=== PATIENT | female | born 1970 | race Caucasian/White ===

== ENCOUNTER 2017-02-21 17:20 | Emergency (ER) | payer BC, OTHER ==
--- NOTE | 2017-02-21 17:21 | ED Physician Documentation ---
General Adult - HISTORIAN Historian: patient, paramedics - HPI Stated Complaint: possible seizure Chief Complaint: General Adult Onset: minutes Timing: better Severity: moderate Further Comments: yes (Pt is a 46 yo female with change in mental status that began at 5:45 pm today. Family called pt's sx a seizure and said that she had stopped breathing briefly. When EMS arrived, pt appeared confused. Pt is talking about and asking for family members as if they are alive. Pt talks about dancing last night, inappropriately. Pt has had at least 5 similar episodes in the past. After the last one pt was tx'd at [facility] and had surgery to relieve a pinched nerve in her neck, after which these episodes stopped until today. says that pt has significant thyroid disease. Also receives infusions at [facility] periodically, apparently for some calcium disorder. Pt also has DM and PATY, using CPAP.) - ROS CONST: other (pt unable to give ROS) NEURO/PSYCH: other (confusion) - PAST HX Past History: other (PATY on CPAP at night, HTN, chronic back pain, anxiety, thyroid d/o, ? calcuim disorder.) Surgeries/Procedures: other (surgery to relieve pinched nerve in neck, 2 yrs ago.) Allergies/Adverse Reactions: Allergies Allergy/AdvReac Type Severity Reaction Status Date / Time Penicillins Allergy Verified 02/21/17 17:46 Home Medications: Ambulatory Orders Medication Instructions Recorded DULoxetine HCL [Cymbalta] 30 mg PO D 09/30/15 Levothyroxine Sodium [Synthroid] 0.05 mg PO D 09/30/15 Lisinopril/Hydrochlorothiazide 2 tab PO D 09/30/15 [Zestoretic 20-12.5 mg Tablet] Lovastatin 40 mg PO PM 09/30/15 Omeprazole [Prilosec] 40 mg PO BID 09/30/15 SUMAtriptan SUCCINATE [Imitrex] 50 mg SQ PRN PRN 09/30/15 Sitagliptin Phosphate [Januvia] 100 mg PO D 09/30/15 Topiramate [Topamax] 25 mg PO PM 09/30/15 Trazodone HCl 50 mg PO PM 09/30/15 amLODIPine BESYLATE [Norvasc] 5 mg PO PM 09/30/15 Baclofen 10 mg PO BID PRN 05/17/16 - SOCIAL HX Smoking History: non-smoker (pt recently quit smoking) - FAMILY HX Family History: No - VITAL SIGNS Vital Signs: Vital Signs Temp Pulse Resp BP Pulse Ox 126/73 05/17/16 10:34 - REVIEWED ASSESSMENTS Nursing Assessment Reviewed: Yes Vitals Reviewed: Yes Progress - Progress Progress: CT head - no acute process Tranfer to [facility], Dr. Baez. - EKG/XRAY/CT CT: CT head w/o contrast: No acute intracranial process. General Adult Physical Exam - PHYSICAL EXAM GENERAL APPEARANCE: moderate distress EENT: eye inspection normal, ENT inspection normal, pharynx normal NECK: normal inspection, supple RESPIRATORY: no resp distress, chest non-tender, breath sounds normal CVS: reg rate & rhythm, heart sounds normal ABDOMEN: soft (obese), no organomegaly, normal bowel sounds BACK: normal inspection, no CVA tenderness SKIN: warm/dry EXTREMITIES: non-tender, normal range of motion, no edema (mild) NEURO: sensation nml, other (subtle L facial droop; ? 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+; not oriented) Discharge Clincal Impression: Mental status change Qualifiers: Altered mental status type: unspecified Qualified Code(s): R41.82 - Altered mental status, unspecified Home Medications: Ambulatory Orders DULoxetine HCL [Cymbalta] 30 mg PO D 09/30/15 Levothyroxine Sodium [Synthroid] 0.05 mg PO D 09/30/15 Lisinopril/Hydrochlorothiazide [Zestoretic 20-12.5 mg Tablet] 2 tab PO D Lovastatin 40 mg PO PM 09/30/15 Omeprazole [Prilosec] 40 mg PO BID 09/30/15 SUMAtriptan SUCCINATE [Imitrex] 50 mg SQ PRN PRN 09/30/15 Sitagliptin Phosphate [Januvia] 100 mg PO D 09/30/15 Topiramate [Topamax] 25 mg PO PM 09/30/15 Trazodone HCl 50 mg PO PM 09/30/15 amLODIPine BESYLATE [Norvasc] 5 mg PO PM 09/30/15 Baclofen 10 mg PO BID PRN 05/17/16 Condition: Stable Disposition: 02 XFER [id number]-TRM HOSP Decision to Admit: NO Decision Time: 18:35
[2017-02-21 17:45] LABS: BASOPHILS % 0.5 (0.0-1.5); EOSINOPHILS % 1.9 % (0.0-6.8); MEAN CORPUSCULAR VOLUME 87.6 fl (80.0-100.0); MONOCYTES % 4.3 % (0.0-11.0); NEUTROPHILS # 3.5 # k/uL (1.4-7.7)
--- NOTE | 2017-02-21 17:58 | Diagnostic Imaging Report ---
[facility] [id number] [facility] [address] [place], [place]. [address] Report Submission Date: Feb 21, 2017 5:54:23 PM CDT Patient Study Name: CLAUDIA DELGADO Date: Feb 21, 2017 5:37:19 PM CDT Modality Type: CT\SR Gender: F Description: CT BRAIN W/O CONTRAST : 66 Institution: [facility] Physician: ROSA ARELLANO - ER CT brain noncontrast Date of study: 21 February 2017 CLINICAL HISTORY: POSSIBLE SEIZURE, LEFT SIDED FACIAL WEAKNESS. PT EXTREMELY CONFUSED (Hx) / SEIZURE (DICOM Hx) TECHNIQUE: 5 mm contiguous axial images of the brain, noncontrast. FINDINGS: There is no evidence of intracranial mass effect, hemorrhage, or acute hydrocephalus. The lateral ventricles are symmetrical and the 4th ventricle is midline without shift. No acute brain parenchymal changes or extra-axial fluid collections are identified. The posterior fossa contents are within normal limits. The calvarium is intact. The visualized sinuses and mastoid air cells are clear. This results called to Dr Arellano at the ER at 1753 IMPRESSION: No acute intracranial process. Electronically signed on Feb 21, 2017 5:54:23 PM CDT by: Tao OLIVAS
[2017-02-21 17:59] LABS: eGFR (African) > 60; eGFR (Non-African) > 60
[2017-02-21 18:41] VITALS: BP 114/69
[2017-02-22 05:35] LABS: AMPHETAMINE NEGATIVE ng/mL (<1000); BARBITURATES NEGATIVE ng/mL (<300); CANNABINOIDS NEGATIVE ng/mL (<50); COCAINE NEGATIVE ng/mL (<150); METHAMPHETAMINE NEGATIVE ng/mL (<1000); METHYLENEDIOXYMETHAMPHETAMINE NEGATIVE ng/mL (<500)
[2017-02-22 05:38] LABS: APPEARANCE,URINE CLEAR (CLEAR); COLOR,URINE YELLOW (YELLOW); OCCULT BLOOD,URINE NEGATIVE (NEGATIVE); PH URINE 5.5 (5.0 - 8.0); UROBILINOGEN URINE 0.2 Eu (0.2-1.0)
== END 2017-02-21 18:40 | disposition short-term general hospital (02) ==
LOC: ED 17:20
DX: R41.82 Altered mental status, unspecified (principal)
CPT/HCPCS: 36415; 51701; 70450; 80053; 80377; 81002; 84703; 85025; 99283; 99284; G0481

== ENCOUNTER 2017-05-13 23:12 | Emergency (ER) | payer SELFPAY ==
--- NOTE | 2017-05-14 00:22 | ED Physician Documentation ---
General Adult - HISTORIAN Historian: patient - HPI Stated Complaint: Pain under left breast Chief Complaint: General Adult Additional Information: Pain under left breast for 2 days. No pain at rest, but if she moves arms to fold clothes or package pick up laundry basket, the pain is presnet. Living in motel room recently. - ROS CONST: no problems CVS/RESP: denies: cough - PAST HX Past History: other (chronic back pain) Allergies/Adverse Reactions: Allergies Allergy/AdvReac Type Severity Reaction Status Date / Time Penicillins Allergy Intermediate Hives Verified 05/14/17 00:07 Home Medications: Ambulatory Orders Medication Instructions Recorded DULoxetine HCL [Cymbalta] 30 mg PO D 09/30/15 Levothyroxine Sodium [Synthroid] 0.05 mg PO D 09/30/15 Lovastatin 40 mg PO PM 09/30/15 Omeprazole [Prilosec] 40 mg PO BID 09/30/15 SUMAtriptan SUCCINATE [Imitrex] 50 mg SQ PRN PRN 09/30/15 Topiramate [Topamax] 25 mg PO PM 09/30/15 Trazodone HCl 50 mg PO PM 09/30/15 amLODIPine BESYLATE [Norvasc] 5 mg PO PM 09/30/15 Baclofen 10 mg PO BID PRN 05/17/16 Glimepiride [Amaryl] 2 mg PO QDAY 05/14/17 - SOCIAL HX Smoking History: non-smoker - FAMILY HX Family History: No - VITAL SIGNS Vital Signs: Vital Signs Temp Pulse Resp BP Pulse Ox 114/69 02/21/17 18:31 - REVIEWED ASSESSMENTS Nursing Assessment Reviewed: Yes Vitals Reviewed: Yes General Adult Physical Exam - PHYSICAL EXAM GENERAL APPEARANCE: obese EENT: eye inspection normal, ENT inspection normal, LICHA NECK: normal inspection, supple RESPIRATORY: no resp distress, breath sounds normal, other (Palpation distal rib edge left anterior thorax reproduces her pain. ) CVS: reg rate & rhythm, heart sounds normal, no murmur ABDOMEN: soft, normal bowel sounds, non-tender RECTAL: deferred BACK: normal inspection SKIN: warm/dry, normal color EXTREMITIES: normal range of motion (gait), no evidence of injury NEURO: CN's nml as tested, motor nml, sensation nml, cognition normal Discharge Clincal Impression: Costochondritis Referrals: Mack Wang [Primary Care Provider] - 2 Days Home Medications: Ambulatory Orders DULoxetine HCL [Cymbalta] 30 mg PO D 09/30/15 Levothyroxine Sodium [Synthroid] 0.05 mg PO D 09/30/15 Lovastatin 40 mg PO PM 09/30/15 Omeprazole [Prilosec] 40 mg PO BID 09/30/15 SUMAtriptan SUCCINATE [Imitrex] 50 mg SQ PRN PRN 09/30/15 Topiramate [Topamax] 25 mg PO PM 09/30/15 Trazodone HCl 50 mg PO PM 09/30/15 amLODIPine BESYLATE [Norvasc] 5 mg PO PM 09/30/15 Baclofen 10 mg PO BID PRN 05/17/16 Glimepiride [Amaryl] 2 mg PO QDAY 05/14/17 Condition: Good Disposition: 01 HOME, SELF-CARE Decision to Admit: NO Decision Time: 00:18
[2017-05-14 00:45] VITALS: BP 119/77
== END 2017-05-14 00:21 | disposition home or self-care (01) ==
LOC: ED 23:12
DX: M94.0 Chondrocostal junction syndrome [Tietze] (principal)
CPT/HCPCS: 99283

== ENCOUNTER 2017-06-06 16:24 | Outpatient (CLI) | payer OTHER | END 2017-06-06 16:25 | LOC: LAB 16:24 | PROVIDERS: ATTEND Family Medicine | DX: G89.29 Other chronic pain (principal) | CPT/HCPCS: 36415; 82728 ==

== ENCOUNTER 2017-09-25 18:41 | Emergency (ER) | payer OTHER ==
[2017-09-25] MEDS ORDERED: 0.9 % SODIUM CHLORIDE 1,000 ML IV SCH (19:00)
[2017-09-25] MEDS ORDERED: 0.9 % SODIUM CHLORIDE 1,000 ML IV ONE (19:09)
[2017-09-25 19:11] LABS: BASOPHILS % 0.7 (0.0-1.5); EOSINOPHILS % 2.9 % (0.0-6.8); MEAN CORPUSCULAR HEMOGLOBIN 28.5 pg (28.0-34.0); MEAN CORPUSCULAR VOLUME 87.5 fl (80.0-100.0); MONOCYTES % 4.6 % (0.0-11.0); NEUTROPHILS # 3.2 # k/uL (1.4-7.7)
--- NOTE | 2017-09-25 19:17 | ED Physician Documentation ---
Neuro Symptoms - HISTORIAN Historian: patient, spouse - [facility] Chief Complaint: Neurological Deficits Additional Information: historian. she doesn't feel right. 5-6 similar episodes in past. has been transferred to [place] from here, also transferred to [place] from [place]. Had neck surgery 2 years ago, and has had 5-6 episodes since then. has had full workups done, but "they can't find anything." her complaint today is left arm weakness, left facial droop, tongue deviates to the right. she is somewhat confused and complains of a global headache. she was seen by Dr Noonan and the [facility] and handed off to me with CVA protocol orders placed. Onset: minutes Timing: sudden onset, still present Last known Well Date: 09/25/17 Last Known Well Time: 19:17 Last known Well Code/Unknown Code: Unknown Severity: mild Context: denies: insect, tick bite, falling injury, head injury Further Comments: no - CHARACTERS OF DEFICIT New Weakness: LUE Altered Sensation: LUE Vision Problems: No Impaired Speech/ Swallowing: No Decreased Ability: cannot stand Cognition is Usually: alert but confused Gait is Usually: walks w/o assistance Associated Symptoms: headache - ROS MENTAL STATUS: denies: problems with vision, sore throat, trouble swallowing CVS/Resp Upper Extremity Problem: denies: chest pain, shortness of breath GI/ DYSPNEA: none MS/SKIN/LYMPH: none Neuro/Psych: headache - PAST HX Past History: other (5-6 similar episodes with no known diagnosis.) Other History: hyperlipidemia, hypertension, other (Gerd, psych) Surgeries/Procedures: none Allergies/Adverse Reactions: Allergies Allergy/AdvReac Type Severity Reaction Status Date / Time Penicillins Allergy Intermediate Hives Verified 09/25/17 19:25 Home Medications: Ambulatory Orders Medication Instructions Recorded Levothyroxine Sodium [Synthroid] 0.05 mg PO D 09/30/15 Lovastatin 40 mg PO PM 09/30/15 Omeprazole [Prilosec] 40 mg PO BID 09/30/15 SUMAtriptan SUCCINATE [Imitrex] 50 mg SQ PRN PRN 09/30/15 Topiramate [Topamax] 25 mg PO PM 09/30/15 Trazodone HCl 50 mg PO PM 09/30/15 amLODIPine BESYLATE [Norvasc] 5 mg PO PM 09/30/15 Calcium Citrate/Vitamin D3 500 mg PO BID 09/25/17 [Calcium Citrate +Vit D3 Tablet] Cholecalciferol (Vitamin D3) 6,000 unit PO DAILY 09/25/17 [Vitamin D3] Docusate Sodium [Colace] 100 mg PO BID 09/25/17 Hydrochlorothiazide 25 mg PO DAILY 09/25/17 Hydrocodone/Acetaminophen 1 each PO PRN PRN 09/25/17 [Hydrocodon-Acetaminophn 10-325] Linagliptin [Tradjenta] 5 mg PO DAILY 09/25/17 Nystatin 500,000 Unit/5 ml Udc 5 ml PO DAILY 09/25/17 [Nilstat] Vitamin E (Dl,Tocopheryl Acet) 800 mg PO DAILY 09/25/17 [E-200] - FAMILY HX Family History: no significant history - SOCIAL HX Smoking History: non-smoker Alcohol Use: none Drug Use: none - VITAL SIGNS Vital Signs: Vital Signs Temp Pulse Resp BP Pulse Ox 78 18 154/77 98 09/25/17 18:45 09/25/17 18:45 09/25/17 18:45 09/25/17 19:30 - REVIEWED ASSESSMENTS Nursing Assessment Reviewed: Yes Vitals Reviewed: Yes Progress - Results/Orders Results/Orders: CT normal labs unremarkable. - Progress Progress: spoke with Dr Carlos from neurology at [place]. He read her previous chart. He said if I think it is something new, that we could tf her, but otherwise he didn't see the utility in repeatig all the same tests. He said he was surprised she didn't have a neurology followup after discharge. He recommended following up with resident clinic for quicker service. I'll discuss with . discussed with and patient they agree with plan. ED Results Lab/Radiology - Lab Results Lab Results: Lab Results 09/25/17 09/25/17 09/25/17 19:06 19:06 19:06 WBC 6.30 K/ul K/ul (4.00-12.00) RBC 4.87 M/ul M/ul (3.90-5.20) Hgb 13.9 g/dL g/dL (12.0-16.0) Hct 42.6 % % (34.5-46.5) MCV 87.5 fl fl (80.0-100.0) MCH 28.5 pg pg (28.0-34.0) MCHC 32.6 g/dL g/dL (30.0-36.0) RDW 14.2 % % (11.3-14.3) Plt Count 196 K/mm3 K/mm3 (130-400) Neut % (Auto) 49.7 % % (39.0-79.0) Lymph % (Auto) 41.1 % % (16.0-50.0) [place] % (Auto) 4.6 % % (0.0-11.0) Eos % (Auto) 2.9 % % (0.0-6.8) Baso % (Auto) 0.7 (0.0-1.5) Neut # (Auto) 3.2 # k/uL # k/uL (1.4-7.7) Lymph # (Auto) 2.6 # k/uL # k/uL (0.6-4.0) [place] # (Auto) 0.3 # k/uL # k/uL (0.0-0.9) Eos # (Auto) 0.2 # k/uL # k/uL (0.0-0.6) Baso # (Auto) 0.0 # k/uL # k/uL (0.0-0.5) Reactive Lymphs % 1.0 % % (0.0-5.0) Reactive Lymphs # 0.1 # k/uL # k/uL (0.0-0.8) PT 9.9 Seconds Seconds (9.4-11.6) INR 0.94 (0.9-1.2) APTT 22.8 Seconds L Seconds (24.5-32.8) Sodium 139 mmol/L mmol/L (136-145) Potassium 3.6 mmol/L mmol/L (3.5-5.1) Chloride 102 mmol/L mmol/L (98-107) Carbon Dioxide 27 mmol/L mmol/L (22-30) BUN 11 mg/dL mg/dL (7-17) Creatinine 0.80 mg/dL mg/dL (0.52-1.04) Est GFR ( Amer) > 60 (60 - ) Est GFR (Non-Af Amer) > 60 (60 - ) Glucose 159 mg/dL H mg/dL (74-106) Calcium 9.2 mg/dL mg/dL (8.4-10.2) Total Bilirubin 0.2 mg/dL mg/dL (0.2-1.3) AST 67 U/L H U/L (15-46) ALT 110 U/L H U/L (13-69) Alkaline Phosphatase 97 U/L U/L (38-126) Creatine Kinase 102 U/L U/L (30-135) Total Protein 7.8 g/dL g/dL (6.3-8.2) Albumin 4.3 g/dL g/dL (3.5-5.0) - Orders Orders: ED Orders Category Date Time Status CT BRAIN W/O CONTRAST Stat Exams 09/25/17 Completed CBC/PLATELET/DIFF Routine Lab 09/25/17 19:06 Completed CMP Routine Lab 09/25/17 19:06 Completed CREATINE KINASE Routine Lab 09/25/17 19:06 Completed PT-INR Routine Lab 09/25/17 19:06 Completed PTT Routine Lab 09/25/17 19:06 Completed 0.9 % Sodium Chloride [Normal Saline] 1,000 ml Med 09/25/17 19:00 Ordered IV Q10H Oxygen Daily Oxygen 09/25/17 19:00 Ordered EKG WITH COMPARISON Stat Ther 09/25/17 Ordered Neuro Symptoms Physical Exam - Physical Exam General Appearance: no acute distress, alert HEENT: no apparent trauma, EOM's intact, PERRL (conjuntival injection), ENT inspection nml, airway intact Neuro/Psych: alert, abnml respond to command, slow to respond, cognition abnml Pheripheral Exam: No: motor nml, sensation nml Neck: normal inspection, supple. No: lymphadenopathy, carotid bruit Respiratory: no resp distress, chest non-tender, breath sounds normal CVS: reg rate & rhythm, heart sounds normal, equal pulses Abdomen: non-tender, no distention Skin: color nml, no rash Extremities: non-tender, normal range of motion, no evidence of injury Discharge Clincal Impression: Stress reaction Headache Qualifiers: Headache type: unspecified Headache chronicity pattern: episodic headache Intractability: not intractable Qualified Code(s): R51 - Headache Referrals: Mack Wang [Primary Care Provider] - 2 Days Condition: Stable Disposition: 01 HOME, SELF-CARE Decision to Admit: NO Date of Decison to Admit: 09/25/17 Decision Time: 20:31
[2017-09-25 19:22] LABS: eGFR (African) > 60; eGFR (Non-African) > 60
--- NOTE | 2017-09-25 19:58 | Diagnostic Imaging Report ---
SYLVIA HAYNES [facility] [address] [facility] [address] [place], [place]. [address] Report Submission Date: Sep 25, 2017 7:14:11 PM AUTHOR AGENT Patient Study Name: CLAUDIA DELGADO Date: Sep 25, 2017 6:59:23 PM AUTHOR AGENT Modality Type: CT\SR Gender: F Description: CT BRAIN W/O CONTRAST : 66 Institution: [facility] Physician: SYLVIA HAYNES Computed tomography of the head without contrast History: Headache Findings: Transverse brain sections are obtained without contrast and compared to the February 21, 2017 scan. Minimal cerebral atrophy is observed. Ventricles are normal in size. Can white differentiation is intact. There is no intracranial hemorrhage. The skull is intact. Visualized sinuses and mastoid air cells are clear. Impression: Minimal cerebral atrophy without acute abnormality. No significant change. Electronically signed on Sep 25, 2017 7:14:11 PM AUTHOR AGENT by: Piotr OLIVAS
[2017-09-25 20:46] VITALS: BP 123/68
== END 2017-09-25 20:55 | disposition home or self-care (01) ==
LOC: ED 18:41
DX: R51 Headache (principal); F43.9 Reaction to severe stress, unspecified
CPT/HCPCS: 70450; 80053; 82550; 85025; 85610; 85730; J7030; 96360; 99283; S1016

== ENCOUNTER 2018-04-30 16:55 | Emergency (ER) | payer SELFPAY ==
[2018-04-30] MEDS ORDERED: DEXTROSE 50% 50 ML DISP.SYRIN IVP ONE (17:21)
[2018-04-30] MEDS ORDERED: ONDANSETRON HCL/PF 4 MG/ 2ML VIAL ONE (17:34)
[2018-04-30] MEDS ORDERED: ONDANSETRON HCL/PF 4 MG/ 2ML VIAL IVP ONE (17:34)
[2018-04-30 17:58] LABS: eGFR (African) > 60; eGFR (Non-African) > 60
[2018-04-30 18:01] LABS: MEAN CORPUSCULAR HEMOGLOBIN 30.9 pg (28.0-34.0)
[2018-04-30 18:02] LABS: EOSINOPHILS % 1 % (0-7); MONOCYTES % 3 % (0-11); SEGMENTED NEUTROPHILS % 80 % (39-79)
--- NOTE | 2018-04-30 18:32 | ED Physician Documentation ---
General Adult - HISTORIAN Historian: patient - HPI Stated Complaint: Nausea/Diarrhea Chief Complaint: Nausea,Vomiting,Diarrhea Additional Information: Patient stats that she has been having some nausea, no vomiting over the last 24 hours. This afternoon has had some diarrhea several times. Is not sure if she is running a fever or not. She states that she ate lunch today. She is diabetic and started to feel funny this afternoon. When she checked her BS it was 53. She took some sips of OJ and ate part of a candy bar and her BS improved to 102. But she started to feel funny again and rechecked it and it was 54. She took two glucose tablets that a friend had and came to the ED for further evaluation. Onset: hours (yesterday) Timing: still present, better Severity: mild Modifying Factors: none Context: no precipitating factor noted. Quality: nausea, no vomiting noted Further Comments: no - ROS CONST: recent illness. denies: fever, sweating, chills CVS/RESP: none GI/: nausea, diarrhea. denies: vomiting - PAST HX Past History: hypertension, other (PATY, hypothyroidism) Other History: diabetes Type 2, other (migraine Headaches) Surgeries/Procedures: cholecystectomy, other (endometrial bx) Immunizations: referred to PCP Allergies/Adverse Reactions: Allergies Allergy/AdvReac Type Severity Reaction Status Date / Time Penicillins Allergy Intermediate Hives Verified 04/30/18 17:11 Home Medications: Ambulatory Orders Medication Instructions Recorded Levothyroxine Sodium [Synthroid] 0.05 mg PO D 09/30/15 Lovastatin 40 mg PO PM 09/30/15 Omeprazole [Prilosec] 40 mg PO BID 09/30/15 SUMAtriptan SUCCINATE [Imitrex] 50 mg SQ PRN PRN 09/30/15 Topiramate [Topamax] 25 mg PO PM 09/30/15 Trazodone HCl 50 mg PO PM 09/30/15 amLODIPine BESYLATE [Norvasc] 5 mg PO PM 09/30/15 Calcium Citrate/Vitamin D3 500 mg PO BID 09/25/17 [Calcium Citrate +Vit D3 Tablet] Cholecalciferol (Vitamin D3) 6,000 unit PO DAILY 09/25/17 [Vitamin D3] Docusate Sodium [Colace] 100 mg PO BID 09/25/17 Hydrochlorothiazide 25 mg PO DAILY 09/25/17 Hydrocodone/Acetaminophen 1 each PO PRN PRN 09/25/17 [Hydrocodon-Acetaminophn 10-325] Linagliptin [Tradjenta] 5 mg PO DAILY 09/25/17 Nystatin 500,000 Unit/5 ml Udc 5 ml PO DAILY 09/25/17 [Nilstat] Vitamin E (Dl,Tocopheryl Acet) 800 mg PO DAILY 09/25/17 [E-200] Ondansetron HCl Rapdis [Zofran Odt] 4 mg PO Q8 PRN #10 tab 04/30/18 - SOCIAL HX Smoking History: non-smoker - FAMILY HX Family History: Yes (COPD, CHF) - VITAL SIGNS Vital Signs: Vital Signs Temp Pulse Resp BP Pulse Ox 98.3 F 108 H 17 118/48 97 04/30/18 17:00 04/30/18 17:00 04/30/18 17:00 04/30/18 17:00 04/30/18 17:00 - REVIEWED ASSESSMENTS Nursing Assessment Reviewed: Yes Vitals Reviewed: Yes ED Results Lab/Radiology - Lab Results Lab Results: Lab Results 04/30/18 04/30/18 17:45 17:45 WBC 7.26 K/ul K/ul (4.00-12.00) RBC 4.45 M/ul M/ul (3.90-5.20) Hgb 13.7 g/dL g/dL (12.0-16.0) Hct 41.8 % % (34.5-46.5) MCV 94.0 fl fl (80.0-100.0) MCH 30.9 pg pg (28.0-34.0) MCHC 32.8 g/dL g/dL (30.0-36.0) RDW 14.0 % % (11.3-14.3) Plt Count 198 K/mm3 K/mm3 (130-400) Seg Neutrophils % 80 % H % (39-79) Band Neutrophils % 4 % % (0-12) Lymphocytes % 12 % L % (16-50) Monocytes % 3 % % (0-11) Eosinophils % 1 % % (0-7) Plt Morphology Comment Normal (NORMAL) RBC Morph Comment Normal (NORMAL) Sodium 144 mmol/L mmol/L (136-145) Potassium 3.4 mmol/L L mmol/L (3.5-5.1) Chloride 109 mmol/L H mmol/L (98-107) Carbon Dioxide 24 mmol/L mmol/L (22-30) BUN 13 mg/dL mg/dL (7-17) Creatinine 1.00 mg/dL mg/dL (0.52-1.04) Estimated Creat Clear 171 Est GFR ( Amer) > 60 (60 - ) Est GFR (Non-Af Amer) > 60 (60 - ) Glucose 73 mg/dL L mg/dL (74-106) Calcium 9.0 mg/dL mg/dL (8.4-10.2) Total Bilirubin 0.3 mg/dL mg/dL (0.2-1.3) AST 56 U/L H U/L (15-46) ALT 73 U/L H U/L (13-69) Alkaline Phosphatase 90 U/L U/L (38-126) Total Protein 8.2 g/dL g/dL (6.3-8.2) Albumin 4.7 g/dL g/dL (3.5-5.0) - Orders Orders: ED Orders Category Date Time Status Place IV Lock 1T Care 04/30/18 17:20 Active CBC/PLATELET/DIFF Routine Lab 04/30/18 17:45 Completed CMP Routine Lab 04/30/18 17:45 Completed URINALYSIS Routine Lab 04/30/18 17:54 Ordered Dextrose 50% [Dextrose 50%-Water Syringe] Med 04/30/18 17:21 Discontinued 25 ml IVP NOW ONE Ondansetron HCl/Pf [Zofran 4 mg/2 ml] Med 04/30/18 17:34 Discontinued 4 mg .ROUTE .STK-MED ONE Ondansetron HCl/Pf [Zofran 4 mg/2 ml] Med 04/30/18 17:34 Discontinued 4 mg IVP NOW ONE General Adult Physical Exam - PHYSICAL EXAM GENERAL APPEARANCE: mild distress EENT: eye inspection normal, ENT inspection normal, pharynx normal, no signs of dehydration NECK: normal inspection, thyroid normal, supple. No: lymphadenopathy, stiff neck RESPIRATORY: no resp distress, chest non-tender, breath sounds normal. No: wheezes, rales, rhonchi CVS: reg rate & rhythm, heart sounds normal, equal pulses, no murmur, no gallop ABDOMEN: soft, no organomegaly, normal bowel sounds, no abdominal bruit, no distension, non-tender BACK: normal inspection, no CVA tenderness SKIN: warm/dry EXTREMITIES: non-tender, no evidence of injury NEURO: oriented X3, cognition normal Discharge Clincal Impression: Hypoglycemia associated with type 2 diabetes mellitus, Viral gastroenteritis Prescriptions: Ondansetron HCl Rapdis [Zofran Odt] 4 mg PO Q8 PRN #10 tab PRN Reason: Nausea / Vomiting Referrals: Mack Wang [Primary Care Provider] - 2 Days Additional Instructions: Drink a lot of fluids. Try to eat something that has some protein in it this evening. Check your blood sugars as needed. Take Zofran as needed for nausea. Condition: Stable Disposition: 01 HOME, SELF-CARE Decision to Admit: NO Date of Decison to Admit: 04/30/18 Decision Time: 18:43
[2018-04-30 19:30] VITALS: BP 114/69
[2018-05-01 07:10] LABS: APPEARANCE,URINE CLEAR (CLEAR); COLOR,URINE YELLOW (YELLOW); OCCULT BLOOD,URINE NEGATIVE (NEGATIVE); PH URINE 5.5 (5.0 - 8.0); UROBILINOGEN URINE 0.2 Eu (0.2-1.0)
[2018-05-04 09:35] LABS: BASOPHILS % 0.3 (0.0-1.5); EOSINOPHILS % 2.2 % (0.0-6.8); MONOCYTES % 2.7 % (0.0-11.0)
== END 2018-04-30 19:10 | disposition home or self-care (01) ==
LOC: ED 16:55
DX: E11.649 Type 2 diabetes mellitus with hypoglycemia without coma (principal); K52.9 Noninfective gastroenteritis and colitis, unspecified
CPT/HCPCS: 80053; 81002; 85025; J2405; 96374; 96375; 99284; S1016